=== PATIENT | female | born 1995 | race Caucasian/White ===

== ENCOUNTER 2017-06-30 21:30 | Emergency (ER) | payer OTHER ==
--- NOTE | 2017-06-30 23:16 | ED ---
Upper Extremity Pain - HPI Summary HPI Summary: Patient is a 22-year-old female who presents emergency department for a left wrist injury that occurred just prior to arrival. Patient states she tripped and caught herself on an outstretched left hand. No other injuries were sustained. Symptoms are mild in severity. Moving and touching left rest makes symptoms worse. Rest makes symptoms better. Denies numbness, tingling or weakness to extremity. - History of Current Complaint Chief Complaint: EDExtremityUpper Stated Complaint: LT WRIST INJURY Time Seen by Provider: 06/30/17 21:52 Hx Obtained From: Patient - Allergies/Home Medications Allergies/Adverse Reactions: Allergies Allergy/AdvReac Type Severity Reaction Status Date / Time No Known Allergies Allergy Verified 06/30/17 21:36 Home Medications: Home Medications NK [No Home Medications Reported] 06/30/17 [History Confirmed 06/30/17] PMH/Surg Hx/FS Hx/Imm Hx Previously Healthy: Yes Infectious Disease History: No Infectious Disease History: Denies: Traveled Outside the [place] in Last 30 Days - Social History Occupation: Student Lives: Dormitory/Roommates Alcohol Use: None Substance Use Type: Reports: None Smoking Status (MU): Never Smoked Tobacco Review of Systems Positive: Other - left wrist pain Negative: Weakness, Paresthesia, Numbness All Other Systems Reviewed And Are Negative: Yes Physical Exam Triage Information Reviewed: Yes Vital Signs On Initial Exam: Initial Vitals Temp Pulse Resp BP Pulse Ox 96.9 F 75 16 132/90 97 06/30/17 21:33 06/30/17 21:33 06/30/17 21:33 06/30/17 21:33 06/30/17 21:33 Vital Signs Reviewed: Yes Appearance: Positive: Well-Appearing - Patient sitting in bed in no acute distress. Friends present. Head/Face: Positive: Normal Head/Face Inspection Eyes: Positive: Normal, JIM Neck: Positive: Supple Musculoskeletal: Positive: Other - Mild edema and pain noted to the left distal forearm. No deformity noted. Good palpable pedal pulse. No proximal injuries. Neurological: Positive: Normal, CN Intact II-III Psychiatric: Positive: Normal Procedures - Splinting Hand-Made Type: orthoglass Splint: sugar-tong Pre-Proc Neuro Vasc Exam: normal Post-Proc Neuro Vasc Exam: normal Diagnostics - Vital Signs Vital Signs Temp Pulse Resp BP Pulse Ox 06/30/17 21:33 96.9 F 75 16 132/90 97 - Laboratory Lab Statement: Any lab studies that have been ordered have been reviewed, and results considered in the medical decision making process. Course/Dx - Course Course Of Treatment: Pt. presenting to the ER for an isolated left wrist injury. She declines analgesics. Wrist x-ray shows nondisplaced distal radial fracture, reading per myself and Dr. Herrera. Sugar tong splint placed. Pt. to call ortho. office tomorrow for an apt. To ice and elevate. Tylenol or Motrin for pain as directed. Pt. understands and agrees with plan. - Diagnoses Differential Diagnosis/HQI/PQRI: Positive: Contusion, Fracture (Closed), Strain , Sprain Provider Diagnoses: Radial fracture Discharge - Sign-Out/Discharge Documenting (check all that apply): Discharge/Admit/Transfer - Discharge Plan Condition: Good Disposition: HOME Patient Education Materials: Wrist Fracture in Adults (ED) Referrals: [facility] - Sulaiman WOOD [Primary Care Provider] - Cesia Trujillo MD [Medical Doctor] - Additional Instructions: Call Dr. Trujillo's office tomorrow morning to schedule an appointment Keep splint in place Ice and elevate Tylenol or Motrin for pain as directed - Billing Disposition and Condition Condition: GOOD Disposition: HOME
[2017-07-01 00:28] VITALS: BP 148/88
--- NOTE | 2017-07-01 07:34 | RAD ---
INDICATION: Left wrist injury. TECHNIQUE: 3 views of the left wrist were obtained. FINDINGS: There is mild lateral soft tissue swelling. The bones are in normal alignment. On one view there appears be faint radiolucent line extending transversely through the distal radial metaphysis most consistent with a nondisplaced fracture. No other fractures are seen. Joint spaces appear maintained. IMPRESSION: NONDISPLACED FRACTURE OF THE DISTAL RADIUS.
== END 2017-06-30 23:40 | disposition home or self-care (01) ==
LOC: ED 21:30
DX: S52.502A Unspecified fracture of the lower end of left radius, initial encounter for closed fracture (principal); W01.0XXA Fall on same level from slipping, tripping and stumbling without subsequent striking against object, initial encounter; Y92.9 Unspecified place or not applicable
CPT/HCPCS: 99283